=== PATIENT | female | born 1940 ===

== ENCOUNTER 2021-05-16 09:39 | Inpatient (IN) ==
[2021-05-16] MEDS ORDERED: ZOSYN VIAL 3.375 GRAMS 3.375 G in NS 100 ML IV + SPIKE MINIBAG* 100 ML IV SCH (10:00)
[2021-05-16 12:15] VITALS: BMI 25.4
[2021-05-16] MEDS ORDERED: PHARMACY CONSULT LTC MEDICATIONS XX SCH (13:00)
[2021-05-16 19:41] LABS: CRYPTOSPORIDIUM PARVUM ANTIGEN NEGATIVE (NEGATIVE); GIARDIA LAMBLIA ANTIGEN NEGATIVE (NEGATIVE)
[2021-05-16] MEDS ORDERED: NS 100 ML IV 100 ML ONE (21:02)
[2021-05-16] MEDS: NS IV SCH (21:06)
[2021-05-16] MEDS: ZOSYN IV SCH (21:06)
[2021-05-17] MEDS: NS IV SCH ×3 (05:21→23:00)
[2021-05-17] MEDS: ZOSYN IV SCH ×3 (05:21→23:00)
[2021-05-17] MEDS ORDERED: NS 100 ML IV 100 ML ONE (06:10)
[2021-05-17 06:20] LABS: BASOPHILS % (AUTO) 0.4 % (0.2-1.0); EOSINOPHILS # (AUTO) 0.2 x10^3/uL (0.0-0.2); EOSINOPHILS % (AUTO) 3.3 % (0.9-2.9); HEMATOCRIT 31.1 % (36.0-47.0); HEMOGLOBIN 10.6 g/dL (12.0-16.0); LYMPHOCYTES % (AUTO) 39.1 % (21.0-51.0); MEAN CORPUSCULAR HGB CONC 34.1 g/dL (33.0-35.0); MEAN CORPUSCULAR VOLUME 82.1 fL (80.0-100.0); MEAN PLATELET VOLUME 7.7 fL (7.4-11.0); MONOCYTES # (AUTO) 0.5 x10^3/uL (0.3-0.8); MONOCYTES % (AUTO) 8.8 % (0.0-13.0); NEUTROPHILS # (AUTO) 2.5 x10^3/uL (2.2-4.8); NEUTROPHILS % (AUTO) 48.4 % (42.0-75.0); RED BLOOD COUNT 3.79 X10^6/uL (3.5-5.4); RED CELL DISTRIBUTION WIDTH 14.4 % (11.6-16.5); WHITE BLOOD COUNT 5.2 X10^3/uL (3.6-10.0)
[2021-05-17 06:30] LABS: ALANINE AMINOTRANSFERASE < 6 Units/L (12-78); ALBUMIN 2.3 g/dL (3.4-5.0); ALKALINE PHOSPHATASE 78 Units/L (46-116); ASPARTATE AMINO TRANSFERASE 15 Units/L (15-37); BLOOD UREA NITROGEN 7 mg/dL (7-18); CALCIUM 8.1 mg/dL (8.5-10.1); CARBON DIOXIDE 26.8 mmol/L (21-32); CHLORIDE 110 mmol/L (98-107); COR CA(FOR HYPOALB) 9.5 mg/dL (8.5-10.1); CREATININE 0.49 mg/dL (0.55-1.02); SODIUM 144 mmol/L (136-145); TOTAL PROTEIN 5.5 g/dL (6.4-8.2); eGFR NON BLACK RACES > 60 (>60)
[2021-05-17] MEDS ORDERED: POTASSIUM CHL 60 MEQ/NS 0.45% 500 ML IV PRN (06:35)
[2021-05-17] MEDS ORDERED: POTASSIUM CHLORIDE LIQ 20 MEQ UDC PO PRN (06:35)
[2021-05-17] MEDS ORDERED: MICRO K EXTEN CAP 10 MEQ PO PRN (06:35)
[2021-05-17] MEDS ORDERED: KLOR-CON PO PRN (06:35)
[2021-05-17] MEDS ORDERED: K-RIDER 10 MEQ/NS 100 ML 10 MEQ/100 ML BAG IV PRN (06:35)
[2021-05-17] MEDS ORDERED: POTASSIUM CHL 40 MEQ/NS 0.45% 500 ML IV PRN (06:35)
[2021-05-17] MEDS ORDERED: LEXAPRO ONE (08:11)
[2021-05-17] MEDS: LEXAPRO PO SCH (08:29)
[2021-05-17] MEDS: K-DUR TAB 20 MEQ PO PRN (08:30)
[2021-05-17] MEDS: VSL#3 PO SCH (10:13)
[2021-05-17] MEDS: LOVENOX INJ 40 MG SYR SC SCH (10:13)
[2021-05-17] MEDS: MAGNESIUM SULFATE 1 GRAM/100 mL PREMIX 1 G/100 ML BAG IV PRN ×2 (20:55→22:16)
[2021-05-18] MEDS ORDERED: NS 100 ML IV 100 ML ONE (00:11)
[2021-05-18] MEDS: NS IV SCH ×3 (05:26→21:39)
[2021-05-18] MEDS: ZOSYN IV SCH ×3 (05:26→21:39)
[2021-05-18 05:57] LABS: BASOPHILS % (AUTO) 0.3 % (0.2-1.0); EOSINOPHILS # (AUTO) 0.2 x10^3/uL (0.0-0.2); EOSINOPHILS % (AUTO) 4.1 % (0.9-2.9); HEMATOCRIT 30.5 % (36.0-47.0); HEMOGLOBIN 10.3 g/dL (12.0-16.0); LYMPHOCYTES # (AUTO) 2.4 X10^3/uL (1.3-2.9); LYMPHOCYTES % (AUTO) 43.8 % (21.0-51.0); MEAN CORPUSCULAR HEMOGLOBIN 27.9 pg (27.0-34.0); MEAN CORPUSCULAR HGB CONC 33.8 g/dL (33.0-35.0); MEAN CORPUSCULAR VOLUME 82.5 fL (80.0-100.0); MEAN PLATELET VOLUME 7.4 fL (7.4-11.0); MONOCYTES # (AUTO) 0.5 x10^3/uL (0.3-0.8); MONOCYTES % (AUTO) 9.1 % (0.0-13.0); NEUTROPHILS # (AUTO) 2.4 x10^3/uL (2.2-4.8); NEUTROPHILS % (AUTO) 42.7 % (42.0-75.0); RED BLOOD COUNT 3.69 X10^6/uL (3.5-5.4); RED CELL DISTRIBUTION WIDTH 14.2 % (11.6-16.5); WHITE BLOOD COUNT 5.5 X10^3/uL (3.6-10.0)
[2021-05-18 06:11] LABS: ALANINE AMINOTRANSFERASE 7 Units/L (12-78); ALBUMIN 2.2 g/dL (3.4-5.0); ALKALINE PHOSPHATASE 72 Units/L (46-116); ASPARTATE AMINO TRANSFERASE 13 Units/L (15-37); BLOOD UREA NITROGEN 6 mg/dL (7-18); CALCIUM 7.7 mg/dL (8.5-10.1); CARBON DIOXIDE 25.5 mmol/L (21-32); CHLORIDE 109 mmol/L (98-107); COR CA(FOR HYPOALB) 9.1 mg/dL (8.5-10.1); CREATININE 0.56 mg/dL (0.55-1.02); MAGNESIUM 2.2 mg/dL (1.7-2.9); SODIUM 143 mmol/L (136-145); TOTAL PROTEIN 5.3 g/dL (6.4-8.2); eGFR NON BLACK RACES > 60 (>60)
[2021-05-18] MEDS ORDERED: LEXAPRO ONE (07:55)
[2021-05-18] MEDS: LOVENOX INJ 40 MG SYR SC SCH (09:41)
[2021-05-18] MEDS: LEXAPRO PO SCH (09:59)
[2021-05-18] MEDS: VSL#3 PO SCH (10:00)
[2021-05-18] MEDS: K-DUR TAB 20 MEQ PO PRN (10:01)
[2021-05-19] MEDS ORDERED: NS 100 ML IV 100 ML ONE (04:37)
[2021-05-19] MEDS: NS IV SCH ×3 (05:26→21:14)
[2021-05-19] MEDS: ZOSYN IV SCH ×3 (05:26→21:14)
[2021-05-19 06:24] LABS: BASOPHILS % (AUTO) 0.3 % (0.2-1.0); EOSINOPHILS # (AUTO) 0.2 x10^3/uL (0.0-0.2); EOSINOPHILS % (AUTO) 3.5 % (0.9-2.9); HEMATOCRIT 34.1 % (36.0-47.0); HEMOGLOBIN 11.5 g/dL (12.0-16.0); LYMPHOCYTES # (AUTO) 2.4 X10^3/uL (1.3-2.9); LYMPHOCYTES % (AUTO) 42.3 % (21.0-51.0); MEAN CORPUSCULAR HGB CONC 33.8 g/dL (33.0-35.0); MEAN CORPUSCULAR VOLUME 82.9 fL (80.0-100.0); MEAN PLATELET VOLUME 7.8 fL (7.4-11.0); MONOCYTES # (AUTO) 0.5 x10^3/uL (0.3-0.8); MONOCYTES % (AUTO) 8.3 % (0.0-13.0); NEUTROPHILS # (AUTO) 2.6 x10^3/uL (2.2-4.8); NEUTROPHILS % (AUTO) 45.6 % (42.0-75.0); RED BLOOD COUNT 4.11 X10^6/uL (3.5-5.4); RED CELL DISTRIBUTION WIDTH 14.8 % (11.6-16.5); WHITE BLOOD COUNT 5.6 X10^3/uL (3.6-10.0)
[2021-05-19 06:41] LABS: ALANINE AMINOTRANSFERASE 9 Units/L (12-78); ALBUMIN 2.4 g/dL (3.4-5.0); ALKALINE PHOSPHATASE 82 Units/L (46-116); ASPARTATE AMINO TRANSFERASE 20 Units/L (15-37); BLOOD UREA NITROGEN 5 mg/dL (7-18); CALCIUM 8.1 mg/dL (8.5-10.1); CARBON DIOXIDE 25.3 mmol/L (21-32); CHLORIDE 110 mmol/L (98-107); COR CA(FOR HYPOALB) 9.4 mg/dL (8.5-10.1); CREATININE 0.47 mg/dL (0.55-1.02); SODIUM 143 mmol/L (136-145); TOTAL PROTEIN 5.7 g/dL (6.4-8.2); eGFR NON BLACK RACES > 60 (>60)
[2021-05-19] MEDS ORDERED: LEXAPRO ONE (07:16)
[2021-05-19] MEDS: LEXAPRO PO SCH (08:24)
[2021-05-19] MEDS: LOVENOX INJ 40 MG SYR SC SCH (08:24)
[2021-05-19] MEDS: VSL#3 PO SCH (08:25)
[2021-05-19] MEDS: ZADITOR EYE DROPS EACHEYE SCH ×2 (10:09→21:00)
[2021-05-19] MEDS: K-DUR TAB 20 MEQ PO PRN (14:50)
[2021-05-20 00:07] LABS: MAGNESIUM 1.9 mg/dL (1.7-2.9)
[2021-05-20] MEDS: MAGNESIUM SULFATE 1 GRAM/100 mL PREMIX 1 G/100 ML BAG IV PRN ×2 (00:25→01:23)
[2021-05-20] MEDS: K-DUR TAB 20 MEQ PO PRN (00:26)
[2021-05-20] MEDS: ZOSYN IV SCH ×3 (05:04→21:05)
[2021-05-20] MEDS: NS IV SCH ×3 (05:04→21:05)
[2021-05-20 06:18] LABS: BASOPHILS # (AUTO) 0.1 X10^3/uL (0.0-0.1); EOSINOPHILS # (AUTO) 0.2 x10^3/uL (0.0-0.2); EOSINOPHILS % (AUTO) 3.2 % (0.9-2.9); HEMATOCRIT 32.7 % (36.0-47.0); HEMOGLOBIN 10.8 g/dL (12.0-16.0); LYMPHOCYTES # (AUTO) 2.4 X10^3/uL (1.3-2.9); LYMPHOCYTES % (AUTO) 43.9 % (21.0-51.0); MEAN CORPUSCULAR HEMOGLOBIN 27.7 pg (27.0-34.0); MEAN CORPUSCULAR HGB CONC 33.1 g/dL (33.0-35.0); MEAN CORPUSCULAR VOLUME 83.6 fL (80.0-100.0); MEAN PLATELET VOLUME 7.6 fL (7.4-11.0); MONOCYTES # (AUTO) 0.5 x10^3/uL (0.3-0.8); MONOCYTES % (AUTO) 9.2 % (0.0-13.0); NEUTROPHILS # (AUTO) 2.3 x10^3/uL (2.2-4.8); NEUTROPHILS % (AUTO) 42.7 % (42.0-75.0); RED BLOOD COUNT 3.91 X10^6/uL (3.5-5.4); RED CELL DISTRIBUTION WIDTH 14.5 % (11.6-16.5); WHITE BLOOD COUNT 5.4 X10^3/uL (3.6-10.0)
[2021-05-20 06:33] LABS: ALANINE AMINOTRANSFERASE 10 Units/L (12-78); ALBUMIN 2.3 g/dL (3.4-5.0); ALKALINE PHOSPHATASE 76 Units/L (46-116); ASPARTATE AMINO TRANSFERASE 13 Units/L (15-37); BLOOD UREA NITROGEN 6 mg/dL (7-18); CARBON DIOXIDE 29.4 mmol/L (21-32); CHLORIDE 110 mmol/L (98-107); COR CA(FOR HYPOALB) 9.4 mg/dL (8.5-10.1); CREATININE 0.53 mg/dL (0.55-1.02); MAGNESIUM 2.4 mg/dL (1.7-2.9); SODIUM 144 mmol/L (136-145); TOTAL PROTEIN 5.6 g/dL (6.4-8.2); eGFR NON BLACK RACES > 60 (>60)
[2021-05-20] MEDS ORDERED: LEXAPRO ONE (09:02)
[2021-05-20] MEDS: ZADITOR EYE DROPS EACHEYE SCH ×2 (09:44→21:05)
[2021-05-20] MEDS: LEXAPRO PO SCH (09:44)
[2021-05-20] MEDS: VSL#3 PO SCH (09:44)
[2021-05-20] MEDS: LOVENOX INJ 40 MG SYR SC SCH (09:45)
[2021-05-21] MEDS: NS IV SCH (05:06)
[2021-05-21] MEDS: ZOSYN IV SCH (05:06)
[2021-05-21 06:25] LABS: BASOPHILS % (AUTO) 0.4 % (0.2-1.0); EOSINOPHILS # (AUTO) 0.2 x10^3/uL (0.0-0.2); EOSINOPHILS % (AUTO) 2.5 % (0.9-2.9); HEMATOCRIT 30.8 % (36.0-47.0); HEMOGLOBIN 10.4 g/dL (12.0-16.0); LYMPHOCYTES # (AUTO) 2.5 X10^3/uL (1.3-2.9); LYMPHOCYTES % (AUTO) 29.4 % (21.0-51.0); MEAN CORPUSCULAR HEMOGLOBIN 28.1 pg (27.0-34.0); MEAN CORPUSCULAR HGB CONC 33.9 g/dL (33.0-35.0); MEAN CORPUSCULAR VOLUME 82.9 fL (80.0-100.0); MEAN PLATELET VOLUME 7.2 fL (7.4-11.0); MONOCYTES # (AUTO) 0.8 x10^3/uL (0.3-0.8); MONOCYTES % (AUTO) 9.3 % (0.0-13.0); NEUTROPHILS % (AUTO) 58.4 % (42.0-75.0); RED BLOOD COUNT 3.72 X10^6/uL (3.5-5.4); WHITE BLOOD COUNT 8.5 X10^3/uL (3.6-10.0)
[2021-05-21 06:41] LABS: ALANINE AMINOTRANSFERASE 9 Units/L (12-78); ALBUMIN 2.3 g/dL (3.4-5.0); ALKALINE PHOSPHATASE 74 Units/L (46-116); ASPARTATE AMINO TRANSFERASE 18 Units/L (15-37); BLOOD UREA NITROGEN 6 mg/dL (7-18); CALCIUM 7.6 mg/dL (8.5-10.1); CARBON DIOXIDE 25.2 mmol/L (21-32); CHLORIDE 107 mmol/L (98-107); CREATININE 0.58 mg/dL (0.55-1.02); SODIUM 141 mmol/L (136-145); TOTAL PROTEIN 5.5 g/dL (6.4-8.2); eGFR NON BLACK RACES > 60 (>60)
[2021-05-21] MEDS ORDERED: LEXAPRO ONE (09:02)
[2021-05-21] MEDS: VSL#3 PO SCH (09:20)
[2021-05-21] MEDS: LOVENOX INJ 40 MG SYR SC SCH (09:21)
[2021-05-21] MEDS: ZADITOR EYE DROPS EACHEYE SCH (09:21)
[2021-05-21] MEDS: LEXAPRO PO SCH (09:21)
[2021-05-21] MEDS: K-DUR TAB 20 MEQ PO PRN (09:23)
[2021-05-21 12:07] VITALS: BP 96/51
[2021-05-21] MEDS ORDERED: ZOSYN VIAL 3.375 GRAMS 3.375 G in NS 100 ML IV 100 ML IV SCH (14:00)
== END 2021-05-21 14:30 | DRG 689 ==
LOC: MED/SURG → OBSVTOIN 10:11
PROVIDERS: ADMIT Obstetrics & Gynecology Obstetrics; ATTEND Obstetrics & Gynecology Obstetrics
DX: R60.0 Localized edema; B96.5 Pseudomonas (aeruginosa) (mallei) (pseudomallei) as the cause of diseases classified elsewhere; L89.154 Pressure ulcer of sacral region, stage 4; N39.0 Urinary tract infection, site not specified; B96.4 Proteus (mirabilis) (morganii) as the cause of diseases classified elsewhere; R26.89 Other abnormalities of gait and mobility; B96.29 Other Escherichia coli [E. coli] as the cause of diseases classified elsewhere; I10 Essential (primary) hypertension

== ENCOUNTER 2021-08-02 08:49 | Inpatient (IN) ==
--- NOTE | 2021-08-02 08:52 | DR.GENAD ---
HPI Time Seen Time Seen by Provider: 08/02/21 08:51 HPI Comment HPI Comment: PATIENT IS 80YR OLD FEMALE FROM [facility] IS IN ER WITH FEVER, LOW BP AND BLOOD CULTURE REPORTING POSITIVE. STARTED RUNNING FEVER OVER THE WEEK END. SPIKE TEMP LAST NIGHT. PATIENT IS CONFUSE. HE ALSO HAVE LARGE SACRAL DECUBITUS U LCER. NO DYSURIA OR DIARRHEA. BP 88/52 IN ER. PATIENT IS IS WEAK. Complaint/Symptoms Chief Complaint Doctors Comments: FEVER, NAUSEA AND VOMITING AND LOW BP. BLOOD CULT REPORTED POSITIVE. COVID-19 Coronavirus risk:travel/contact w/high risk person: No Has patient experienced Coronavirus symptoms: No Nurses notes reviewed Nurses Notes Review: Yes Source History Provided: Patient and Group Home Mode of Arrival Mode of Arrival: Stretcher Timing Came on: Suddenly Duration Duration: Constant Duration: Days Severity Severity: Moderate Modifying Factors Worsens:: PRESSURE ON DECUBITUS ULCER. Improves:: PRESSURE OFF DECUBITUS ULCER. Associated Signs and Symptoms Associated Signs and Symptoms: WEAKNESS. Other History Other History: ANEMIA, CAD, GERD, DYSLIPIDEMIA. PMH PMH Past Surgical History: Yes Surgical History: Ortho Surgery, Tonsillectomy and Other ROS Review of Systems Constitutional: See HPI, Fever, Weakness and Fatigue Eyes: No Symptoms Reported and See HPI ENTM: See HPI and Nose Congestion; negative Nose Discharge Respiratoy: See HPI, Moist Cough and Short of Breath; negative Wheezing Cardiovascular: No Symptoms Reported and See HPI; negative Chest Pain Gastrointestinal/Abdominal: No Symptoms Reported and See HPI; negative Abdominal Pain, Diarrhea and Vomiting Genitourinary: No Symptoms Reported and See HPI; negative Dysuria Neurological: See HPI and Weakness; negative Headache Musculoskeletal: See HPI and Back Pain (SACRAL DECUBITUS ULSER.); negative Muscle Pain Integumentary: No Symptoms Reported, See HPI and Rash (DECUBITIS ULCER SACRUM.); negative Juandice Hematologic/Lymphatic: No Symptoms Reported and See HPI; negative Easy Bruising Endocrine: No Symptoms Reported and See HPI; negative Increased Thirst and Increased Urine Psychiatric: No Symptoms Reported and See HPI All Other Systems: Reviewed and Negative PE Vital Signs Vitals: Temperature 98.0 F Pulse Rate 67 Respiratory Rate 17 Blood Pressure [Right Arm] 96/51 Blood Pressure 90/54 O2 Sat by Pulse Oximetry 96 General Limitations: No Limitations General Appearance: Alert and In No Apparent Distress Head Head Exam: Normal Inspection and Atraumatic Eyes Eye exam: Normal Appearance and PERRL; negative Scleral Icterus and Conjunctival Injection ENT ENT Exam: Normal Exam, Normal Oropharynx, Normal External Ear Exam and TM's Normal Bilaterally External Ear Exam: Normal External Inspection; negative Mastoid Tenderness TM/Canal Exam: Bilateral: Normal Nose Exam: Normal Nose Exam Mouth Exam: Normal Inspection; negative Lip Swelling and Tongue Swelling Throat Exam: Normal Inspection; negative Tonsillar Erythema, Tonsillomegaly and Tonsillar Exudate Neck Neck Exam: Normal Inspection and Trachea Midline; negative Tenderness Chest Chest Inspection: Normal Inspection and Symmetric Chest Wall Rise; negative Tenderness Respiratory Respiratory Exam: Normal Lung Sounds Bilat; negative Accessory Muscle Use, Chest Wall Tenderness and Respiratory Distress Respiratory Exam: Bilateral: Rhonchi and Lower: Rhonchi Cardiovascular Cardiovascular Exam: Regular Rate, Normal Rhythm, Normal Heart Sounds and Other (LOW BP.); negative Systolic Murmur and Diastolic Murmur Abdominal Exam Abdominal Exam: Normal Inspection, Normal Bowel Sounds and Soft; negative Tenderness Extremities Extremities Exam: Normal Inspection and Normal Capillary Refill Back Back Exam: Normal Inspection; negative (R) CVA Tenderness and (L) CVA Tenderness Neurologic Neurological Exam: Alert; negative Oriented X3 (ORIENTED TIMES 2.) Psychiatric Psychiatric Exam: Flat Affect Skin Skin Exam: Dry MDM Additional Information Additional Information Obtained From: Old Records Differential Diagnosis Differential Diagnosis: SEPSIS, ITI, PNEUMONIA, GENERALIZED WEAKNESS. COURSE Treatment Treatment: SEE ORDERS NOTED WHILE PATIENT WAS IN ER. LABS, EKG AND XRAY DISCUSSED WITH PATIENT. Consultation Consultation Comments: DISCUSSED PATIENT WITH DR. GONZALES. HE WILL ADMIT PATIENT. Education/Counseling Education/Counseling: Patient Educated On: Diagnosis and Needs for Follow Up ROR Labs Reviewed Laboratory Results Reviewed?: Yes Result Diagrams: 08/09/21 04:10 08/09/21 04:10 Laboratory: 08/02/21 09:37 Blood Blood Culture - Final Escherichia Coli Escherichia Coli#2 08/02/21 09:20 Blood Blood Culture - Final Escherichia Coli 08/02/21 10:10 Urine,Catheterized Urine Culture - Final Escherichia Coli Proteus Mirabilis Pseudomonas Aeruginosa 08/02/21 10:07 Sacral Wound Gram Stain - Final 08/02/21 10:07 Sacral Wound Culture - Final Pseudomonas Aeruginosa Proteus Mirabilis WBC 30.1 X10^3/uL (3.6-10.0) H* 08/02/21 09:20 RBC 3.72 X10^6/uL (3.5-5.4) 08/02/21 09:20 Hgb 9.9 g/dL (12.0-16.0) L 08/02/21 09:20 Hct 30.3 % (36.0-47.0) L 08/02/21 09:20 MCV 81.5 fL (80.0-100.0) 08/02/21 09:20 MCH 26.6 pg (27.0-34.0) L 08/02/21 09:20 MCHC 32.7 g/dL (33.0-35.0) L 08/02/21 09:20 RDW 15.7 % (11.6-16.5) 08/02/21 09:20 Plt Count 185 X10^3/uL (150.0-450.0) 08/02/21 09:20 Plt Count Comment Adequate (ADEQUATE) 08/02/21 09:20 MPV 8.0 fL (7.4-11.0) 08/02/21 09:20 Neut % (Auto) 92.0 % (42.0-75.0) H 08/02/21 09:20 Lymph % (Auto) 5.0 % (21.0-51.0) L 08/02/21 09:20 [place] % (Auto) 2.5 % (0.0-13.0) 08/02/21 09:20 Eos % (Auto) 0.3 % (0.9-2.9) L 08/02/21 09:20 Baso % (Auto) 0.2 % (0.2-1.0) 08/02/21 09:20 Neut # (Auto) 27.7 x10^3/uL (2.2-4.8) H 08/02/21 09:20 Lymph # (Auto) 1.5 X10^3/uL (1.3-2.9) 08/02/21 09:20 [place] # (Auto) 0.7 x10^3/uL (0.3-0.8) 08/02/21 09:20 Eos # (Auto) 0.1 x10^3/uL (0.0-0.2) 08/02/21 09:20 Baso # (Auto) 0.0 X10^3/uL (0.0-0.1) 08/02/21 09:20 Absolute Nucleated RBC 0.0 /100WBC 08/02/21 09:20 Total Counted 100 08/02/21 09:20 Neutrophils % (Manual) 88 % (39-76) H 08/02/21 09:20 Band Neutrophils % 2 % (0-10) 08/02/21 09:20 Lymphocytes % (Manual) 9 % (13-43) L 08/02/21 09:20 Monocytes % (Manual) 1 % (4-9) L 08/02/21 09:20 Plt Morphology Comment Normal (NORMAL) 08/02/21 09:20 RBC Morphology Normal (NORMAL) 08/02/21 09:20 Sodium 138 mmol/L (136-145) 08/02/21 09:20 Corrected Sodium 138 mmol/L (136-145) 08/02/21 09:20 Potassium 3.8 mmol/L (3.5-5.1) 08/02/21 09:20 Chloride 102 mmol/L (98-107) 08/02/21 09:20 Carbon Dioxide 28.6 mmol/L (21-32) 08/02/21 09:20 BUN 35 mg/dL (7-18) H 08/02/21 09:20 Creatinine 1.87 mg/dL (0.55-1.02) H 08/02/21 09:20 Est GFR (MDRD) Af Amer 33 (>60) L 08/02/21 09:20 Est GFR (MDRD) Non-Af 28 (>60) L 08/02/21 09:20 Glucose 117 mg/dL (65-99) H 08/02/21 09:20 Lactic Acid 1.7 mmol/L (0.4-2.0) 08/02/21 09:20 Calcium 8.6 mg/dL (8.5-10.1) 08/02/21 09:20 Corrected Calcium 10.3 mg/dL (8.5-10.1) H 08/02/21 09:20 Total Bilirubin 0.40 mg/dL (0.2-1.0) 08/02/21 09:20 AST 15 Units/L (15-37) 08/02/21 09:20 ALT 7 Units/L (12-78) L 08/02/21 09:20 Alkaline Phosphatase 179 Units/L (46-116) H 08/02/21 09:20 Creatine Kinase 35 Units/L (26-192) 08/02/21 09:20 CK-MB (CK-2) 0.9 ng/mL (0-4.0) 08/02/21 09:20 CK/CKMB % Calc 2.6 % (<4) 08/02/21 09:20 Troponin I High Sens 11.0 ng/L (4.0-60.0) 08/02/21 09:20 B-Natriuretic Peptide 173 pg/mL (0-79) H 08/02/21 09:20 Total Protein 5.5 g/dL (6.4-8.2) L 08/02/21 09:20 Albumin 1.9 g/dL (3.4-5.0) L 08/02/21 09:20 Globulin 3.6 g/dL (2.5-4.5) 08/02/21 09:20 Albumin/Globulin Ratio 0.5 Ratio (1.1-2.1) L 08/02/21 09:20 Specimen Type Catherized urine 08/02/21 10:10 Urine Color Yellow (YELLOW) 08/02/21 10:10 Urine Appearance Cloudy (CLEAR) 08/02/21 10:10 Urine pH 7.0 (5.0 - 8.0) 08/02/21 10:10 Ur Specific [place] 1.010 (1.000-1.030) 08/02/21 10:10 Urine Protein 3+ (NEGATIVE) 08/02/21 10:10 Urine Glucose (UA) Negative (NEGATIVE) 08/02/21 10:10 Urine Ketones 1+ (NEGATIVE) 08/02/21 10:10 Urine Blood 5+ (NEGATIVE) 08/02/21 10:10 Urine Nitrite Negative (NEGATIVE) 08/02/21 10:10 Urine Bilirubin Negative (NEGATIVE) 08/02/21 10:10 Urine Urobilinogen 2+ (NORMAL) 08/02/21 10:10 Ur Leukocyte Esterase 3+ (NEGATIVE) 08/02/21 10:10 Urine RBC 5-10 /HPF (0-3) A 08/02/21 10:10 Urine WBC 10-20 /HPF (0-5) A 08/02/21 10:10 Ur Squamous Epith Cells Rare /HPF (NEGATIVE) 08/02/21 10:10 Amorphous Sediment 2+ /HPF (NEGATIVE) 08/02/21 10:10 Urine Bacteria 3+ /HPF (NEGATIVE) 08/02/21 10:10 Ur Culture Indicated? Yes/culture set up 08/02/21 10:10 SARS-CoV-2 (PCR) Negative (NEGATIVE) 08/02/21 09:47 XRAY XRAY Interpreted by: Radiologist (REPORT NOTED.) and Self EKG Rate: 60 Elwin: Normal Rhythm: NSR Block: None Hypertrophy: None ST: Old, Inf, Ant, Infarct and Nonsp Opioid Opioid Risk Tool Age (Erasto box if 16-45): No History of Preadolescent Sexual Abuse: No Total: 0 Total Score Risk Category: Low Risk Copyright: [facility] predicting aberrant behaviors Diagnosis Discharge Problem: Bacteremia Sepsis Qualifiers: Sepsis type: sepsis due to unspecified organism Sepsis acute organ dysfunction status: unspecified Qualified Code(s): A41.9 - Sepsis, unspecified organism Hypotension Qualifiers: Hypotension type: unspecified hypotension type Qualified Code(s): I95.9 - Hypotension, unspecified Decubital ulcer Qualifiers: Pressure injury location: sacral region Pressure injury stage: stage 2 Qualified Code(s): L89.152 - Pressure ulcer of sacral region, stage 2 Instructions Forms: Precautions for COVID19 [facility] Patient Portal Social Distancing
[2021-08-02] MEDS ORDERED: NS 1,000 ML IV 1,000 ML ONE (09:46)
[2021-08-02 09:53] LABS: BASOPHILS % (AUTO) 0.2 % (0.2-1.0); EOSINOPHILS # (AUTO) 0.1 x10^3/uL (0.0-0.2); EOSINOPHILS % (AUTO) 0.3 % (0.9-2.9); HEMATOCRIT 30.3 % (36.0-47.0); HEMOGLOBIN 9.9 g/dL (12.0-16.0); LYMPHOCYTES # (AUTO) 1.5 X10^3/uL (1.3-2.9); MEAN CORPUSCULAR HEMOGLOBIN 26.6 pg (27.0-34.0); MEAN CORPUSCULAR HGB CONC 32.7 g/dL (33.0-35.0); MEAN CORPUSCULAR VOLUME 81.5 fL (80.0-100.0); MONOCYTES # (AUTO) 0.7 x10^3/uL (0.3-0.8); MONOCYTES % (AUTO) 2.5 % (0.0-13.0); NEUTROPHILS # (AUTO) 27.7 x10^3/uL (2.2-4.8); RED BLOOD COUNT 3.72 X10^6/uL (3.5-5.4); RED CELL DISTRIBUTION WIDTH 15.7 % (11.6-16.5)
[2021-08-02 09:55] LABS: WHITE BLOOD COUNT 30.1 X10^3/uL (3.6-10.0)
[2021-08-02 10:04] LABS: LACTIC ACID 1.7 mmol/L (0.4-2.0)
[2021-08-02] MEDS: NS 1,000 ML IV 1,000 ML IV SCH ×3 (10:08→17:57)
[2021-08-02 10:17] LABS: CKMB % 2.6 % (<4); CREATINE KINASE MB 0.9 ng/mL (0-4.0)
[2021-08-02 10:18] LABS: BILIRUBIN,URINE NEGATIVE (NEGATIVE); BLOOD/HEMOGLOBIN,URINE 5+ (NEGATIVE); GLUCOSE, URINE NEGATIVE (NEGATIVE); KETONES,URINE 1+ (NEGATIVE); LEUKOCYTE ESTERASE ,URINE 3+ (NEGATIVE); NITRITES,URINE NEGATIVE (NEGATIVE); PROTEIN,URINE 3+ (NEGATIVE); UROBILINOGEN,URINE 2+ (NORMAL)
[2021-08-02 10:19] LABS: APPEARANCE,URINE CLOUDY (CLEAR); COLOR,URINE YELLOW (YELLOW)
[2021-08-02 10:19] LABS: ALBUMIN 1.9 g/dL (3.4-5.0); BAND NEUTROPHILS % 2 % (0-10); CALCIUM 8.6 mg/dL (8.5-10.1); CARBON DIOXIDE 28.6 mmol/L (21-32); COR CA(FOR HYPOALB) 10.3 mg/dL (8.5-10.1); CREATININE 1.87 mg/dL (0.55-1.02); TOTAL PROTEIN 5.5 g/dL (6.4-8.2)
[2021-08-02 10:20] LABS: PLATELET MORPHOLOGY COMMENT NORMAL (NORMAL)
--- NOTE | 2021-08-02 10:25 | RAD ---
HISTORYFeverSTUDYChest AP portableCOMPARISONNoneFINDINGSHeart size is normal. Autumn are normal. Mild hyperinflation is present. Lung daily are free of acute infiltrates. Interstitial lung changes are present. They are of uncertain duration. They could be chronic however if acute they could indicate pneumonitis or atypical pneumonia. Clinical and historical correlation recommended. No areas of consolidation identified. No pneumothoraces or pleural effusions identified. Bony thorax is unremarkable with the exception of osteopenia.IMPRESSIONLungs mildly hyperinflated but free of acute alveolar infiltrates or areas of consolidationInterstitial lung changes which could be chronic and fibrotic or acute and due to pneumonitis or atypical pneumonia. This distinction is difficult in the absence of previous films with which to compare.Electronically signed by: CORDELL TODD (August 02, 2021 10:25:08)
[2021-08-02 10:53] LABS: BACTERIA,URINE 3+ /HPF (NEGATIVE); SQUAMOUS EPITHELIAL CELL,UR RARE /HPF (NEGATIVE)
[2021-08-02] MEDS ORDERED: ZOSYN VIAL 3.375 GRAMS 3.375 G in NS 100 ML IV 100 ML IV ONE (11:14)
[2021-08-02] MEDS ORDERED: NS 100 ML IV 100 ML ONE (11:19)
[2021-08-02] MEDS ORDERED: ZOSYN VIAL 3.375 GRAMS IV ONE (11:19)
[2021-08-02] MEDS ORDERED: PHARMACY CONSULT - VANCOMYCIN XX SCH (12:00)
[2021-08-02] MEDS: VANCOMYCIN IV *PREMIX 1 G/200 ML BAG 1 G/200 ML PIGGYBACK IV SCH (13:23)
[2021-08-02] MEDS ORDERED: ZOSYN VIAL 3.375 GRAMS 3.375 G in NS 100 ML IV 100 ML IV SCH (14:10)
[2021-08-02] MEDS ORDERED: SOLU-Cortef INJ IVP SCH (14:10)
[2021-08-02] MEDS ORDERED: NS 1,000 ML IV 1,000 ML IV SCH (14:10)
[2021-08-02] MEDS ORDERED: LOVENOX INJ 30 MG SYR SC SCH (15:00)
[2021-08-02] MEDS ORDERED: LOVENOX INJ 40 MG SYR SC SCH (15:00)
[2021-08-02] MEDS: SOLU-Cortef INJ IVP SCH ×2 (16:26→21:33)
[2021-08-02] MEDS: THIAMINE HCL INJ IVP SCH (21:20)
[2021-08-02] MEDS: ZOSYN VIAL 3.375 GRAMS 3.375 G in NS 100 ML IV 100 ML IV SCH (21:33)
[2021-08-03 04:54] LABS: BASOPHILS % (AUTO) 0.1 % (0.2-1.0); EOSINOPHILS # (AUTO) 0.1 x10^3/uL (0.0-0.2); EOSINOPHILS % (AUTO) 0.4 % (0.9-2.9); HEMATOCRIT 27.8 % (36.0-47.0); HEMOGLOBIN 9.3 g/dL (12.0-16.0); LYMPHOCYTES # (AUTO) 0.7 X10^3/uL (1.3-2.9); LYMPHOCYTES % (AUTO) 4.4 % (21.0-51.0); MEAN CORPUSCULAR HGB CONC 33.3 g/dL (33.0-35.0); MEAN CORPUSCULAR VOLUME 81.1 fL (80.0-100.0); MEAN PLATELET VOLUME 8.1 fL (7.4-11.0); MONOCYTES # (AUTO) 0.3 x10^3/uL (0.3-0.8); NEUTROPHILS # (AUTO) 14.4 x10^3/uL (2.2-4.8); NEUTROPHILS % (AUTO) 93.1 % (42.0-75.0); RED BLOOD COUNT 3.43 X10^6/uL (3.5-5.4); WHITE BLOOD COUNT 15.4 X10^3/uL (3.6-10.0)
[2021-08-03 05:05] LABS: ALANINE AMINOTRANSFERASE < 6 Units/L (12-78); ALBUMIN 1.6 g/dL (3.4-5.0); ALKALINE PHOSPHATASE 138 Units/L (46-116); ASPARTATE AMINO TRANSFERASE 10 Units/L (15-37); BLOOD UREA NITROGEN 26 mg/dL (7-18); CALCIUM 7.5 mg/dL (8.5-10.1); CARBON DIOXIDE 22.5 mmol/L (21-32); CHLORIDE 109 mmol/L (98-107); COR CA(FOR HYPOALB) 9.4 mg/dL (8.5-10.1); COR NA(FOR HYPERGLY) 143 mmol/L (136-145); CREATININE 1.16 mg/dL (0.55-1.02); MAGNESIUM 1.5 mg/dL (1.7-2.9); SODIUM 142 mmol/L (136-145); TOTAL PROTEIN 4.7 g/dL (6.4-8.2); eGFR NON BLACK RACES 48 (>60)
[2021-08-03] MEDS ORDERED: POTASSIUM CHL 40 MEQ/NS 0.45% 500 ML IV PRN (05:21)
[2021-08-03] MEDS ORDERED: POTASSIUM CHL 60 MEQ/NS 0.45% 500 ML IV PRN (05:21)
[2021-08-03] MEDS ORDERED: POTASSIUM CHLORIDE LIQ 20 MEQ UDC PO PRN (05:21)
[2021-08-03] MEDS ORDERED: MICRO K EXTEN CAP 10 MEQ PO PRN (05:21)
[2021-08-03] MEDS: MAGNESIUM SULFATE 1 GRAM/100 mL PREMIX 1 G/100 ML BAG IV PRN ×2 (05:55→07:21)
[2021-08-03] MEDS: NS 1,000 ML IV 1,000 ML IV SCH ×4 (05:56→23:45)
[2021-08-03] MEDS: ZOSYN VIAL 3.375 GRAMS 3.375 G in NS 100 ML IV 100 ML IV SCH ×3 (05:56→21:38)
[2021-08-03 06:14] LABS: BAND NEUTROPHILS % 1 % (0-10); PLATELET MORPHOLOGY COMMENT NORMAL (NORMAL)
[2021-08-03] MEDS: LOVENOX INJ 40 MG SYR SC SCH (08:10)
[2021-08-03] MEDS: SOLU-Cortef INJ IVP SCH ×4 (08:11→21:38)
[2021-08-03] MEDS: VSL#3 PO SCH (08:11)
[2021-08-03] MEDS: THIAMINE HCL INJ IVP SCH (08:11)
[2021-08-03] MEDS ORDERED: PROCRIT or EPOGEN VIAL 10,000 UNITS SC ONE (08:47)
[2021-08-03] MEDS: VANCOMYCIN IV *PREMIX 1 G/200 ML BAG 1 G/200 ML PIGGYBACK IV SCH (12:01)
[2021-08-04 04:35] LABS: ALANINE AMINOTRANSFERASE < 6 Units/L (12-78); ALBUMIN 1.5 g/dL (3.4-5.0); ALKALINE PHOSPHATASE 116 Units/L (46-116); ASPARTATE AMINO TRANSFERASE 7 Units/L (15-37); BLOOD UREA NITROGEN 21 mg/dL (7-18); CALCIUM 7.4 mg/dL (8.5-10.1); CARBON DIOXIDE 20.3 mmol/L (21-32); CHLORIDE 112 mmol/L (98-107); COR CA(FOR HYPOALB) 9.4 mg/dL (8.5-10.1); COR NA(FOR HYPERGLY) 143 mmol/L (136-145); CREATININE 0.99 mg/dL (0.55-1.02); SODIUM 142 mmol/L (136-145); TOTAL PROTEIN 4.6 g/dL (6.4-8.2); eGFR NON BLACK RACES 57 (>60)
[2021-08-04 04:37] LABS: BASOPHILS % (AUTO) 0.1 % (0.2-1.0); HEMATOCRIT 26.9 % (36.0-47.0); HEMOGLOBIN 8.9 g/dL (12.0-16.0); LYMPHOCYTES # (AUTO) 0.8 X10^3/uL (1.3-2.9); LYMPHOCYTES % (AUTO) 9.1 % (21.0-51.0); MEAN CORPUSCULAR HEMOGLOBIN 27.1 pg (27.0-34.0); MEAN CORPUSCULAR HGB CONC 33.2 g/dL (33.0-35.0); MEAN CORPUSCULAR VOLUME 81.8 fL (80.0-100.0); MEAN PLATELET VOLUME 8.6 fL (7.4-11.0); MONOCYTES # (AUTO) 0.3 x10^3/uL (0.3-0.8); MONOCYTES % (AUTO) 3.4 % (0.0-13.0); NEUTROPHILS # (AUTO) 7.5 x10^3/uL (2.2-4.8); NEUTROPHILS % (AUTO) 87.4 % (42.0-75.0); RED BLOOD COUNT 3.28 X10^6/uL (3.5-5.4); RED CELL DISTRIBUTION WIDTH 15.9 % (11.6-16.5); WHITE BLOOD COUNT 8.5 X10^3/uL (3.6-10.0)
[2021-08-04] MEDS: NS 1,000 ML IV 1,000 ML IV SCH ×5 (05:20→21:29)
[2021-08-04] MEDS: ZOSYN VIAL 3.375 GRAMS 3.375 G in NS 100 ML IV 100 ML IV SCH (05:21)
[2021-08-04] MEDS: KLOR-CON PO PRN (05:33)
[2021-08-04] MEDS: LOVENOX INJ 40 MG SYR SC SCH (08:15)
[2021-08-04] MEDS: VSL#3 PO SCH (08:16)
[2021-08-04] MEDS: SOLU-Cortef INJ IVP SCH ×4 (08:16→20:45)
[2021-08-04] MEDS: K-DUR TAB 20 MEQ PO PRN (09:06)
[2021-08-04] MEDS: MERREM VIAL 500 MG in NS 100 ML IV 100 ML IV SCH ×3 (09:38→21:29)
[2021-08-04] MEDS: VANCOMYCIN IV *PREMIX 1 G/200 ML BAG 1 G/200 ML PIGGYBACK IV SCH (11:23)
[2021-08-05] MEDS: NS 1,000 ML IV 1,000 ML IV SCH ×4 (03:17→18:05)
[2021-08-05 05:28] LABS: BASOPHILS % (AUTO) 0.3 % (0.2-1.0); EOSINOPHILS # (AUTO) 0.1 x10^3/uL (0.0-0.2); EOSINOPHILS % (AUTO) 1.5 % (0.9-2.9); HEMATOCRIT 28.5 % (36.0-47.0); HEMOGLOBIN 9.4 g/dL (12.0-16.0); LYMPHOCYTES # (AUTO) 0.9 X10^3/uL (1.3-2.9); LYMPHOCYTES % (AUTO) 13.2 % (21.0-51.0); MEAN CORPUSCULAR HGB CONC 32.8 g/dL (33.0-35.0); MEAN CORPUSCULAR VOLUME 82.1 fL (80.0-100.0); MEAN PLATELET VOLUME 8.4 fL (7.4-11.0); MONOCYTES # (AUTO) 0.3 x10^3/uL (0.3-0.8); MONOCYTES % (AUTO) 4.7 % (0.0-13.0); NEUTROPHILS # (AUTO) 5.5 x10^3/uL (2.2-4.8); NEUTROPHILS % (AUTO) 80.3 % (42.0-75.0); RED BLOOD COUNT 3.48 X10^6/uL (3.5-5.4); RED CELL DISTRIBUTION WIDTH 16.4 % (11.6-16.5); WHITE BLOOD COUNT 6.8 X10^3/uL (3.6-10.0)
[2021-08-05] MEDS: MERREM VIAL 500 MG in NS 100 ML IV 100 ML IV SCH ×3 (05:34→21:54)
[2021-08-05 05:44] LABS: ALANINE AMINOTRANSFERASE < 6 Units/L (12-78); ALBUMIN 1.6 g/dL (3.4-5.0); ALKALINE PHOSPHATASE 100 Units/L (46-116); ASPARTATE AMINO TRANSFERASE 7 Units/L (15-37); BLOOD UREA NITROGEN 19 mg/dL (7-18); CALCIUM 7.4 mg/dL (8.5-10.1); CARBON DIOXIDE 19.2 mmol/L (21-32); CHLORIDE 114 mmol/L (98-107); COR CA(FOR HYPOALB) 9.3 mg/dL (8.5-10.1); COR NA(FOR HYPERGLY) 144 mmol/L (136-145); CREATININE 0.83 mg/dL (0.55-1.02); SODIUM 143 mmol/L (136-145); TOTAL PROTEIN 4.5 g/dL (6.4-8.2); eGFR NON BLACK RACES > 60 (>60)
[2021-08-05 06:57] LABS: BAND NEUTROPHILS % 3 % (0-10); PLATELET MORPHOLOGY COMMENT NORMAL (NORMAL)
[2021-08-05] MEDS: VSL#3 PO SCH (08:39)
[2021-08-05] MEDS: SOLU-Cortef INJ IVP SCH ×4 (08:39→20:06)
[2021-08-05] MEDS: LOVENOX INJ 40 MG SYR SC SCH (08:39)
[2021-08-05] MEDS: K-DUR TAB 20 MEQ PO PRN (09:00)
[2021-08-05] MEDS ORDERED: PHARMACY COMMENT IV ONE (10:00)
[2021-08-05 10:22] LABS: CREATININE 0.79 mg/dL (0.55-1.02); VANCOMYCIN,TROUGH 14.1 ug/mL (15-20)
[2021-08-05] MEDS: MAGNESIUM SULFATE 1 GRAM/100 mL PREMIX 1 G/100 ML BAG IV PRN ×3 (12:34→14:38)
[2021-08-06] MEDS: MERREM VIAL 500 MG in NS 100 ML IV 100 ML IV SCH ×3 (05:13→22:00)
[2021-08-06] MEDS: NS 1,000 ML IV 1,000 ML IV SCH ×5 (05:13→20:39)
[2021-08-06 05:35] LABS: BASOPHILS % (AUTO) 0.3 % (0.2-1.0); HEMOGLOBIN 9.7 g/dL (12.0-16.0); LYMPHOCYTES # (AUTO) 1.3 X10^3/uL (1.3-2.9); LYMPHOCYTES % (AUTO) 15.5 % (21.0-51.0); MEAN CORPUSCULAR HEMOGLOBIN 27.5 pg (27.0-34.0); MEAN CORPUSCULAR HGB CONC 33.5 g/dL (33.0-35.0); MEAN PLATELET VOLUME 8.5 fL (7.4-11.0); MONOCYTES # (AUTO) 0.4 x10^3/uL (0.3-0.8); MONOCYTES % (AUTO) 4.7 % (0.0-13.0); NEUTROPHILS # (AUTO) 6.6 x10^3/uL (2.2-4.8); NEUTROPHILS % (AUTO) 79.5 % (42.0-75.0); RED BLOOD COUNT 3.53 X10^6/uL (3.5-5.4); RED CELL DISTRIBUTION WIDTH 16.4 % (11.6-16.5); WHITE BLOOD COUNT 8.4 X10^3/uL (3.6-10.0)
[2021-08-06 05:51] LABS: PLATELET MORPHOLOGY COMMENT NORMAL (NORMAL)
[2021-08-06 06:10] LABS: ALANINE AMINOTRANSFERASE 6 Units/L (12-78); ALBUMIN 1.5 g/dL (3.4-5.0); ALKALINE PHOSPHATASE 90 Units/L (46-116); ASPARTATE AMINO TRANSFERASE 13 Units/L (15-37); BLOOD UREA NITROGEN 16 mg/dL (7-18); CALCIUM 7.2 mg/dL (8.5-10.1); CARBON DIOXIDE 18.4 mmol/L (21-32); CHLORIDE 114 mmol/L (98-107); COR CA(FOR HYPOALB) 9.2 mg/dL (8.5-10.1); COR NA(FOR HYPERGLY) 142 mmol/L (136-145); SODIUM 142 mmol/L (136-145); TOTAL PROTEIN 4.3 g/dL (6.4-8.2); eGFR NON BLACK RACES > 60 (>60)
[2021-08-06] MEDS: SOLU-Cortef INJ IVP SCH ×4 (08:19→20:39)
[2021-08-06] MEDS: VSL#3 PO SCH (08:20)
[2021-08-06] MEDS: K-DUR TAB 20 MEQ PO PRN (08:23)
[2021-08-06] MEDS: LOVENOX INJ 40 MG SYR SC SCH (08:44)
[2021-08-06] MEDS: K-DUR TAB 20 MEQ PO SCH ×2 (10:33→20:38)
[2021-08-07] MEDS: NS 1,000 ML IV 1,000 ML IV SCH ×4 (05:06→17:48)
[2021-08-07] MEDS: MERREM VIAL 500 MG in NS 100 ML IV 100 ML IV SCH ×3 (05:07→21:30)
[2021-08-07 06:23] LABS: HEMOGLOBIN 9.4 g/dL (12.0-16.0); MEAN PLATELET VOLUME 8.3 fL (7.4-11.0)
[2021-08-07 06:26] LABS: BASOPHILS % (AUTO) 0.3 % (0.2-1.0); EOSINOPHILS # (AUTO) 0.3 x10^3/uL (0.0-0.2); EOSINOPHILS % (AUTO) 2.7 % (0.9-2.9); HEMATOCRIT 28.4 % (36.0-47.0); LYMPHOCYTES # (AUTO) 1.4 X10^3/uL (1.3-2.9); LYMPHOCYTES % (AUTO) 13.8 % (21.0-51.0); MEAN CORPUSCULAR HEMOGLOBIN 27.2 pg (27.0-34.0); MEAN CORPUSCULAR HGB CONC 33.2 g/dL (33.0-35.0); MEAN CORPUSCULAR VOLUME 81.7 fL (80.0-100.0); MONOCYTES # (AUTO) 0.6 x10^3/uL (0.3-0.8); MONOCYTES % (AUTO) 5.8 % (0.0-13.0); NEUTROPHILS # (AUTO) 7.7 x10^3/uL (2.2-4.8); NEUTROPHILS % (AUTO) 77.4 % (42.0-75.0); RED BLOOD COUNT 3.48 X10^6/uL (3.5-5.4); RED CELL DISTRIBUTION WIDTH 15.8 % (11.6-16.5)
[2021-08-07 06:27] LABS: ALANINE AMINOTRANSFERASE 12 Units/L (12-78); ALBUMIN 1.5 g/dL (3.4-5.0); ALKALINE PHOSPHATASE 85 Units/L (46-116); ASPARTATE AMINO TRANSFERASE 18 Units/L (15-37); BLOOD UREA NITROGEN 12 mg/dL (7-18); CALCIUM 7.2 mg/dL (8.5-10.1); CARBON DIOXIDE 20.6 mmol/L (21-32); CHLORIDE 114 mmol/L (98-107); COR CA(FOR HYPOALB) 9.2 mg/dL (8.5-10.1); COR NA(FOR HYPERGLY) 142 mmol/L (136-145); CREATININE 0.59 mg/dL (0.55-1.02); MAGNESIUM 1.8 mg/dL (1.7-2.9); SODIUM 142 mmol/L (136-145); TOTAL PROTEIN 4.1 g/dL (6.4-8.2); eGFR NON BLACK RACES > 60 (>60)
[2021-08-07 06:41] LABS: BAND NEUTROPHILS % 3 % (0-10); PLATELET MORPHOLOGY COMMENT NORMAL (NORMAL)
[2021-08-07] MEDS: MAGNESIUM SULFATE 1 GRAM/100 mL PREMIX 1 G/100 ML BAG IV PRN ×2 (07:24→09:03)
[2021-08-07] MEDS: VSL#3 PO SCH (08:03)
[2021-08-07] MEDS: LOVENOX INJ 40 MG SYR SC SCH (08:03)
[2021-08-07] MEDS: K-DUR TAB 20 MEQ PO SCH ×2 (08:03→20:17)
[2021-08-07] MEDS: SOLU-Cortef INJ IVP SCH ×4 (09:03→20:17)
--- NOTE | 2021-08-07 11:05 | RAD ---
HISTORYReason For Study pnaSTUDYCHEST, 1 [id number]/2022FINDINGSAccnorthridge hospital [facility] campusi for AP technique and patient rotation, the cardiac silhouette is normal in size. There are patchy opacities within the right lung base. Evaluation of the left lung base is limited due to patient rotation. The left upper lung is clear. There is no significant pleural effusion or pneumothorax.IMPRESSIONPatchy right basilar opacities, suspicious for pneumonia. Clinical correlation and continued PA/lateral radiographic follow-up recommendElectronically signed by: PARISH PEACOCK (August 07, 2021 11:03:13)
[2021-08-07] MEDS: NYSTATIN SUSP MT SCH ×3 (13:51→20:17)
[2021-08-08] MEDS: NS 1,000 ML IV 1,000 ML IV SCH ×3 (01:09→17:11)
[2021-08-08] MEDS: MERREM VIAL 500 MG in NS 100 ML IV 100 ML IV SCH ×3 (05:02→21:01)
[2021-08-08 05:47] LABS: BASOPHILS % (AUTO) 0.2 % (0.2-1.0); EOSINOPHILS % (AUTO) 0.3 % (0.9-2.9); HEMOGLOBIN 9.4 g/dL (12.0-16.0); LYMPHOCYTES # (AUTO) 1.3 X10^3/uL (1.3-2.9); LYMPHOCYTES % (AUTO) 11.3 % (21.0-51.0); MEAN CORPUSCULAR HGB CONC 33.5 g/dL (33.0-35.0); MEAN CORPUSCULAR VOLUME 80.5 fL (80.0-100.0); MONOCYTES # (AUTO) 0.4 x10^3/uL (0.3-0.8); MONOCYTES % (AUTO) 3.4 % (0.0-13.0); NEUTROPHILS # (AUTO) 9.5 x10^3/uL (2.2-4.8); NEUTROPHILS % (AUTO) 84.8 % (42.0-75.0); RED BLOOD COUNT 3.47 X10^6/uL (3.5-5.4); RED CELL DISTRIBUTION WIDTH 15.9 % (11.6-16.5); WHITE BLOOD COUNT 11.2 X10^3/uL (3.6-10.0)
[2021-08-08 05:52] LABS: ALANINE AMINOTRANSFERASE 13 Units/L (12-78); ALBUMIN 1.6 g/dL (3.4-5.0); ALKALINE PHOSPHATASE 86 Units/L (46-116); ASPARTATE AMINO TRANSFERASE 19 Units/L (15-37); BLOOD UREA NITROGEN 10 mg/dL (7-18); CALCIUM 7.1 mg/dL (8.5-10.1); CARBON DIOXIDE 20.5 mmol/L (21-32); CHLORIDE 111 mmol/L (98-107); COR NA(FOR HYPERGLY) 142 mmol/L (136-145); CREATININE 0.54 mg/dL (0.55-1.02); MAGNESIUM 1.8 mg/dL (1.7-2.9); SODIUM 141 mmol/L (136-145); TOTAL PROTEIN 4.2 g/dL (6.4-8.2); eGFR NON BLACK RACES > 60 (>60)
[2021-08-08 06:26] LABS: BAND NEUTROPHILS % 5 % (0-10); PLATELET MORPHOLOGY COMMENT NORMAL (NORMAL)
[2021-08-08] MEDS: MAGNESIUM SULFATE 1 GRAM/100 mL PREMIX 1 G/100 ML BAG IV PRN ×2 (07:20→08:29)
[2021-08-08] MEDS: KLOR-CON PO PRN (07:31)
[2021-08-08] MEDS: K-DUR TAB 20 MEQ PO PRN (07:31)
[2021-08-08] MEDS: LOVENOX INJ 40 MG SYR SC SCH (08:27)
[2021-08-08] MEDS: K-DUR TAB 20 MEQ PO SCH ×2 (08:27→20:18)
[2021-08-08] MEDS: NYSTATIN SUSP MT SCH ×4 (08:27→20:18)
[2021-08-08] MEDS: VSL#3 PO SCH (08:28)
[2021-08-08] MEDS: SOLU-Cortef INJ IVP SCH ×4 (08:28→20:18)
[2021-08-09] MEDS: NS 1,000 ML IV 1,000 ML IV SCH ×2 (02:35→09:20)
[2021-08-09] MEDS: MERREM VIAL 500 MG in NS 100 ML IV 100 ML IV SCH ×2 (05:00→13:14)
[2021-08-09 05:11] LABS: BASOPHILS # (AUTO) 0.1 X10^3/uL (0.0-0.1); BASOPHILS % (AUTO) 0.7 % (0.2-1.0); EOSINOPHILS # (AUTO) 0.3 x10^3/uL (0.0-0.2); HEMATOCRIT 28.5 % (36.0-47.0); HEMOGLOBIN 9.4 g/dL (12.0-16.0); LYMPHOCYTES # (AUTO) 1.2 X10^3/uL (1.3-2.9); LYMPHOCYTES % (AUTO) 10.9 % (21.0-51.0); MEAN CORPUSCULAR HEMOGLOBIN 26.6 pg (27.0-34.0); MEAN CORPUSCULAR HGB CONC 33.1 g/dL (33.0-35.0); MEAN CORPUSCULAR VOLUME 80.4 fL (80.0-100.0); MEAN PLATELET VOLUME 7.6 fL (7.4-11.0); MONOCYTES # (AUTO) 0.4 x10^3/uL (0.3-0.8); MONOCYTES % (AUTO) 3.4 % (0.0-13.0); NEUTROPHILS # (AUTO) 9.3 x10^3/uL (2.2-4.8); RED BLOOD COUNT 3.54 X10^6/uL (3.5-5.4); WHITE BLOOD COUNT 11.3 X10^3/uL (3.6-10.0)
[2021-08-09 05:23] LABS: ALANINE AMINOTRANSFERASE 10 Units/L (12-78); ALBUMIN 1.5 g/dL (3.4-5.0); ALKALINE PHOSPHATASE 82 Units/L (46-116); ASPARTATE AMINO TRANSFERASE 16 Units/L (15-37); BLOOD UREA NITROGEN 7 mg/dL (7-18); CARBON DIOXIDE 25.9 mmol/L (21-32); CHLORIDE 112 mmol/L (98-107); COR NA(FOR HYPERGLY) 142 mmol/L (136-145); CREATININE 0.51 mg/dL (0.55-1.02); SODIUM 142 mmol/L (136-145); TOTAL PROTEIN 4.1 g/dL (6.4-8.2); eGFR NON BLACK RACES > 60 (>60)
[2021-08-09 05:44] LABS: BAND NEUTROPHILS % 7 % (0-10)
[2021-08-09 05:45] LABS: PLATELET MORPHOLOGY COMMENT NORMAL (NORMAL)
[2021-08-09] MEDS: K-RIDER 10 MEQ/NS 100 ML 10 MEQ/100 ML BAG IV PRN ×2 (06:10→07:18)
[2021-08-09] MEDS: MAGNESIUM SULFATE 1 GRAM/100 mL PREMIX 1 G/100 ML BAG IV PRN ×2 (06:55→08:46)
[2021-08-09] MEDS: K-DUR TAB 20 MEQ PO SCH (08:07)
[2021-08-09] MEDS: VSL#3 PO SCH (08:07)
[2021-08-09] MEDS: NYSTATIN SUSP MT SCH ×2 (08:07→12:26)
[2021-08-09] MEDS: SOLU-Cortef INJ IVP SCH ×2 (08:07→12:26)
[2021-08-09] MEDS: LOVENOX INJ 40 MG SYR SC SCH (08:07)
[2021-08-09 14:13] VITALS: BP 106/53
== END 2021-08-09 14:30 | DRG 871 ==
LOC: ER 08:49 → ICU 12:02
PROVIDERS: ADMIT Obstetrics & Gynecology Obstetrics; ATTEND Obstetrics & Gynecology Obstetrics

== ENCOUNTER 2021-09-28 14:59 | Observation (INO) ==
--- NOTE | 2021-09-28 15:42 | DR.NAUSEAF ---
HPI Time Seen Time Seen by Provider: 09/28/21 15:41 Primary Care Physician Primary Care Physician: GONZALES Complaints Chief Complaint Doctors Comments: 80 y/o female brought over from the [place], reportedly having nausea/vomiting past 2 days. Has a low BP today. Pt awake, alert, but a poor historian. States she doesn't know why she is here. Admits to some nausea, vomiting. Denies abdominal pain. States she is hungry. Unable to provide accurate answers, appears to have underlying dementia. No report of fever, chills, cough, urinary difficulty, diarrhea. Chief Complaint:: TONH STAFF STATES PATIENT IS NOTED TO BE HAVNIG HYPOTENSION WITH N/V. PATIENT WAS NOTED TO HAVE A ABD SERIES DONE OUTPATIENT YESTERDAY WITH REPORTS IN CHART COVID-19 Coronavirus risk:travel/contact w/high risk person: No Has patient experienced Coronavirus symptoms: No Reviewed Nurses Notes Reviewed: Yes Source History Provided: Residential Mode of Arrival Mode of Arrival: Stretcher Timing Onset of Chief Complaint: 09/26/21 PMH PMH Past Medical History: Yes Past Medical History: Anemia, Coronary Artery Disease, Dyslipidemia and GERD Past Surgical History: Yes Surgical History: Ortho Surgery, Tonsillectomy and Other Family History History of Family Medical Conditions: Yes Family Medical History: Diabetes Mellitus, Cancer, Coronary Artery Disease and Hypertension Social History Does any household member use tobacco: No Alcohol Use: None Do you use any recreational Drugs:: No Lives With: Family Lives Where: Home Travel Risk Coronavirus risk:travel/contact w/high risk person: No Has patient experienced Coronavirus symptoms: No Infectious screening In the last 2 months have you had wt loss of >10#?: NO Have you had fever, night sweats or hemotysis?: No Have you traveled outside the country in the last 6 months?: No Isolation: Standard ROS Review of Systems Constitutional: No Symptoms Reported ENTM: No Symptoms Reported Respiratoy: No Symptoms Reported Cardiovascular: No Symptoms Reported Gastrointestinal/Abdominal: Nausea and Vomiting Genitourinary: No Symptoms Reported Neurological: No Symptoms Reported Musculoskeletal: No Symptoms Reported Integumentary: No Symptoms Reported Hematologic/Lymphatic: No Symptoms Reported All Other Systems: Reviewed and Negative PE Vital Signs Vitals: Temperature 97.7 F Pulse Rate [Right Radial] 74 Pulse Rate 74 Respiratory Rate 20 Blood Pressure [Right Arm] 101/55 Blood Pressure [Left Arm] 118/61 Blood Pressure 102/55 O2 Sat by Pulse Oximetry 98 General General Appearance: Alert and In No Apparent Distress Head Head Exam: Normal Inspection, Atraumatic and Normocephalic Eyes Eye exam: PERRL and EOMI ENT ENT Exam: Mucous Membranes Moist Neck Neck Exam: Normal Inspection and Full ROM; negative Tenderness Respiratory Respiratory Exam: Normal Lung Sounds Bilat; negative Accessory Muscle Use or Respiratory Distress Abdominal Exam Abdominal Exam: Normal Inspection, Normal Bowel Sounds and Soft; negative Tenderness, Guarding or Rebound Extremities Extremities Exam: Other (+ lower ext contractures); negative Tenderness Neurologic Neurological Exam: Alert and CN II-XII Intact; negative Motor Sensory Deficit Skin Skin Exam: Warm and Dry COURSE Treatment Treatment: 80 y/o female with vomiting x 2 days, now low BP. Does not appear to be in distress. Reportedly had abdominal x-rays today concerning for ileus vs SBO. Given IV fluids, IV zofran. 1854 - CBC, CMP OK. U/A (cath specimen) with TNTC WBCs, very cloudy. Ileus probably related to UTI. Recommend admission. Will treat with IV rocephin. Discussed with Dr Rodríguez, covering for Dr Gonzales, accepts the admission. [facility]OR Labs Reviewed Laboratory Results Reviewed?: Yes Result Diagrams: 09/28/21 16:20 09/28/21 16:20 Laboratory: WBC 7.9 X10^3/uL (3.6-10.0) 09/28/21 16:20 RBC 4.28 X10^6/uL (3.5-5.4) 09/28/21 16:20 Hgb 11.4 g/dL (12.0-16.0) L 09/28/21 16:20 Hct 35.6 % (36.0-47.0) L 09/28/21 16:20 MCV 83.2 fL (80.0-100.0) 09/28/21 16:20 MCH 26.6 pg (27.0-34.0) L 09/28/21 16:20 MCHC 31.9 g/dL (33.0-35.0) L 09/28/21 16:20 RDW 17.0 % (11.6-16.5) H 09/28/21 16:20 Plt Count 321 X10^3/uL (150.0-450.0) 09/28/21 16:20 MPV 7.6 fL (7.4-11.0) 09/28/21 16:20 Neut % (Auto) 53.7 % (42.0-75.0) 09/28/21 16:20 Lymph % (Auto) 33.1 % (21.0-51.0) 09/28/21 16:20 [place] % (Auto) 9.1 % (0.0-13.0) 09/28/21 16:20 Eos % (Auto) 1.8 % (0.9-2.9) 09/28/21 16:20 Baso % (Auto) 2.3 % (0.2-1.0) H 09/28/21 16:20 Neut # (Auto) 4.3 x10^3/uL (2.2-4.8) 09/28/21 16:20 Lymph # (Auto) 2.6 X10^3/uL (1.3-2.9) 09/28/21 16:20 [place] # (Auto) 0.7 x10^3/uL (0.3-0.8) 09/28/21 16:20 Eos # (Auto) 0.1 x10^3/uL (0.0-0.2) 09/28/21 16:20 Baso # (Auto) 0.2 X10^3/uL (0.0-0.1) H 09/28/21 16:20 Absolute Nucleated RBC 0.2 /100WBC 09/28/21 16:20 Sodium 142 mmol/L (136-145) 09/28/21 16:20 Corrected Sodium TNP 09/28/21 16:20 Potassium 4.4 mmol/L (3.5-5.1) 09/28/21 16:20 Chloride 108 mmol/L (98-107) H 09/28/21 16:20 Carbon Dioxide 29.5 mmol/L (21-32) 09/28/21 16:20 BUN 16 mg/dL (7-18) 09/28/21 16:20 Creatinine 0.68 mg/dL (0.55-1.02) 09/28/21 16:20 Est GFR (MDRD) Af Amer > 60 (>60) 09/28/21 16:20 Est GFR (MDRD) Non-Af > 60 (>60) 09/28/21 16:20 Glucose 97 mg/dL (65-99) 09/28/21 16:20 Lactic Acid 1.1 mmol/L (0.4-2.0) 09/28/21 16:20 Calcium 8.8 mg/dL (8.5-10.1) 09/28/21 16:20 Corrected Calcium 10.1 mg/dL (8.5-10.1) 09/28/21 16:20 Total Bilirubin 0.20 mg/dL (0.2-1.0) 09/28/21 16:20 AST 20 Units/L (15-37) 09/28/21 16:20 ALT 17 Units/L (12-78) 09/28/21 16:20 Alkaline Phosphatase 103 Units/L (46-116) 09/28/21 16:20 Creatine Kinase 18 Units/L (26-192) L 09/28/21 16:20 CK-MB (CK-2) < 1.0 ng/mL (0-4.0) 09/28/21 16:20 CK/CKMB % Calc 5.6 % (<4) 09/28/21 16:20 Troponin I High Sens 4.6 ng/L (4.0-60.0) 09/28/21 16:20 Total Protein 5.9 g/dL (6.4-8.2) L 09/28/21 16:20 Albumin 2.4 g/dL (3.4-5.0) L 09/28/21 16:20 Globulin 3.5 g/dL (2.5-4.5) 09/28/21 16:20 Albumin/Globulin Ratio 0.7 Ratio (1.1-2.1) L 09/28/21 16:20 Lipase 29 Units/L (73-393) L 09/28/21 16:20 Specimen Type Catherized urine 09/28/21 17:57 Urine Color Yellow (YELLOW) 09/28/21 17:57 Urine Appearance Cloudy (CLEAR) 09/28/21 17:57 Urine pH 7.0 (5.0 - 8.0) 09/28/21 17:57 Ur Specific [place] 1.015 (1.000-1.030) 09/28/21 17:57 Urine Protein 3+ (NEGATIVE) 09/28/21 17:57 Urine Glucose (UA) Negative (NEGATIVE) 09/28/21 17:57 Urine Ketones 1+ (NEGATIVE) 09/28/21 17:57 Urine Blood 4+ (NEGATIVE) 09/28/21 17:57 Urine Nitrite Positive (NEGATIVE) 09/28/21 17:57 Urine Bilirubin Negative (NEGATIVE) 09/28/21 17:57 Urine Urobilinogen Normal (NORMAL) 09/28/21 17:57 Ur Leukocyte Esterase 3+ (NEGATIVE) 09/28/21 17:57 Urine RBC 3-5 /HPF (0-3) A 09/28/21 17:57 Urine WBC Tntc /HPF (0-5) A 09/28/21 17:57 Ur Squamous Epith Cells Few /HPF (NEGATIVE) 09/28/21 17:57 Urine Bacteria 3+ /HPF (NEGATIVE) 09/28/21 17:57 Urine Mucus Moderate /HPF (NEGATIVE) 09/28/21 17:57 Ur Culture Indicated? Yes/culture set up 09/28/21 17:57 CBC, CMP acceptable. U/A (cath specimen) with TNTC WBCs, 3+ bacteria. XRAY XRAY Interpreted by: Self X-ray Results: CXR - no acute abnormalities. CT abd/pelvis - c/w ileus, doubt SBO. Opioid Opioid Risk Tool Age (Erasto box if 16-45): No History of Preadolescent Sexual Abuse: No Total: 0 Total Score Risk Category: Low Risk Copyright: [facility] predicting aberrant behaviors Discharge Plan Diagnosis Discharge Problem: Acute UTI, Ileus Discharge Plan Patient Disposition: 01 HOME, SELF-CARE Condition: Stable Prescriptions: No Action budesonide 32 mcg/actuation spray,non-aerosol 1 spray INTRANASAL DAILY hydrocodone-acetaminophen 5-325 mg tablet 1 tab PO Q6H ondansetron HCl 4 mg tablet 4 mg PO Q4H omeprazole 20 mg capsule,delayed release(DR/EC) 20 mg PO BID escitalopram oxalate [Lexapro] 10 mg tablet 10 mg PO DAILY acetaminophen [Tylenol] 325 mg Tablet 650 mg PO Q4H PRN ketotifen fumarate 0.025 % (0.035 %) Drops 1 drp OPHTHALMIC (EYE) BID ascorbic acid (vitamin C) [Vitamin C] 500 mg Tablet 500 mg PO DAILY zinc 50 mg Tablet 50 mg PO DAILY Glucerna Liquid 1 ea PO BID Rupert 7-7-1.5 gram Powder In Packet 1 ea PO DAILY potassium chloride [Klor-Con M20] 20 mEq Tablet,Er Particles/Crystals 20 meq PO DAILY Qty: 30 12RF hydrocortisone [Cortef] 10 mg Tablet 10 mg PO BID Qty: 21 0RF Rx Instructions: Take 1 tab in the morning and 1 tab at lunch x7days then take 1 tab in the morning x7 days ketotifen fumarate [Zaditor] 0.025 % (0.035 %) Drops 1 drp OPHTHALMIC (EYE) BID Rx Instructions: administer at least 8 hours apart Health Concerns: Post Hospitalization: new medications and changes needed to prevent readmission or further decline. Pt educated and given instructions on all concerns. Plan of Treatment: Continue with present treatment and follow up plan. Pt is to keep follow up appointment as instructed and take medications as ordered. Orders to Discharge Patient Discharge Orders: Discharge (Routine); Ordered 09/28/21 Ordered By: Ry Sam Transfer (Routine); Ordered 09/28/21 Ordered By: Ry Sam Follow ups/Referrals Follow ups/Referrals: DELIA GONZALES [Primary Care Provider] - 3 days Instructions Stand Alone Forms: Precautions for COVID, [facility], Patient Portal, Social Distancing
[2021-09-28] MEDS ORDERED: ZOFRAN INJ 4 MG VIAL IVP ONE (15:45)
[2021-09-28] MEDS ORDERED: NS 500 ML IV 500 ML IV ONE ×2 (15:46→15:54)
[2021-09-28] MEDS ORDERED: ZOFRAN INJ 4 MG VIAL ONE (15:54)
[2021-09-28 16:38] LABS: BASOPHILS # (AUTO) 0.2 X10^3/uL (0.0-0.1); BASOPHILS % (AUTO) 2.3 % (0.2-1.0); EOSINOPHILS # (AUTO) 0.1 x10^3/uL (0.0-0.2); EOSINOPHILS % (AUTO) 1.8 % (0.9-2.9); HEMATOCRIT 35.6 % (36.0-47.0); HEMOGLOBIN 11.4 g/dL (12.0-16.0); LYMPHOCYTES # (AUTO) 2.6 X10^3/uL (1.3-2.9); LYMPHOCYTES % (AUTO) 33.1 % (21.0-51.0); MEAN CORPUSCULAR HEMOGLOBIN 26.6 pg (27.0-34.0); MEAN CORPUSCULAR HGB CONC 31.9 g/dL (33.0-35.0); MEAN CORPUSCULAR VOLUME 83.2 fL (80.0-100.0); MEAN PLATELET VOLUME 7.6 fL (7.4-11.0); MONOCYTES # (AUTO) 0.7 x10^3/uL (0.3-0.8); MONOCYTES % (AUTO) 9.1 % (0.0-13.0); NEUTROPHILS # (AUTO) 4.3 x10^3/uL (2.2-4.8); NEUTROPHILS % (AUTO) 53.7 % (42.0-75.0); RED BLOOD COUNT 4.28 X10^6/uL (3.5-5.4); WHITE BLOOD COUNT 7.9 X10^3/uL (3.6-10.0)
[2021-09-28 16:57] LABS: LACTIC ACID 1.1 mmol/L (0.4-2.0)
[2021-09-28 17:01] LABS: ALANINE AMINOTRANSFERASE 17 Units/L (12-78); ALBUMIN 2.4 g/dL (3.4-5.0); ALKALINE PHOSPHATASE 103 Units/L (46-116); ASPARTATE AMINO TRANSFERASE 20 Units/L (15-37); BLOOD UREA NITROGEN 16 mg/dL (7-18); CALCIUM 8.8 mg/dL (8.5-10.1); CARBON DIOXIDE 29.5 mmol/L (21-32); CHLORIDE 108 mmol/L (98-107); CKMB % 5.6 % (<4); COR CA(FOR HYPOALB) 10.1 mg/dL (8.5-10.1); CREATINE KINASE 18 Units/L (26-192); CREATINE KINASE MB < 1.0 ng/mL (0-4.0); CREATININE 0.68 mg/dL (0.55-1.02); LIPASE 29 Units/L (73-393); SODIUM 142 mmol/L (136-145); TOTAL PROTEIN 5.9 g/dL (6.4-8.2); eGFR NON BLACK RACES > 60 (>60)
[2021-09-28] MEDS ORDERED: NS 100 ML IV 100 ML ONE ×2 (18:03→20:19)
[2021-09-28 18:10] LABS: BILIRUBIN,URINE NEGATIVE (NEGATIVE); BLOOD/HEMOGLOBIN,URINE 4+ (NEGATIVE); GLUCOSE, URINE NEGATIVE (NEGATIVE); KETONES,URINE 1+ (NEGATIVE); LEUKOCYTE ESTERASE ,URINE 3+ (NEGATIVE); NITRITES,URINE POSITIVE (NEGATIVE); PROTEIN,URINE 3+ (NEGATIVE); UROBILINOGEN,URINE NORMAL (NORMAL)
[2021-09-28 18:19] LABS: APPEARANCE,URINE CLOUDY (CLEAR); COLOR,URINE YELLOW (YELLOW)
[2021-09-28 18:20] LABS: BACTERIA,URINE 3+ /HPF (NEGATIVE); SQUAMOUS EPITHELIAL CELL,UR FEW /HPF (NEGATIVE)
--- NOTE | 2021-09-28 19:15 | CT ---
EXAM: CT ABDOMEN AND PELVIS WITH INTRAVENOUS CONTRASTHISTORY: Hypertension. Nausea and vomiting.TECHNIQUE: Spiral axial CT images are obtained through the abdomen and pelvis without the administration of oral contrast and with the administration of intravenous contrast. Additional coronal and sagittal reformatted images are reconstructed.DOSIMETRY: Total DLP 412.2 mGycm; CTDI 39.9 mGyCOMPARISON: None available.FINDINGS:GASTROINTESTINAL TRACT: There is nonspecific, fluid-filled, nondilated small and large bowel loops within the abdomen and pelvis; cannot rule out enteritis with impending diarrhea. Clinical correlation is advised. No evidence for bowel herniation, bowel obstruction, appendicitis, colitis, or diverticulitis.GENITOURINARY SYSTEM: There is a large, approximately 3.4 cm CC by 1.8 cm AP by 3.1 cm transverse, staghorn calculus in the right renal pelvis and contiguous inferior calyces, follow-up with moderate right hydronephrosis; no urine extravasation seen. Approximately 2.4 cm transverse by 1.3 cm AP by 2.3 cm CC staghorn calculus and left renal pelvis with mild hydronephrosis; no urine extravasation seen. Additional tiny bilateral nonobstructing renal calculi are noted. Mildly thickened appearance of the urinary bladder wall which may represent sequela of incomplete bladder distention and/or cystitis in the appropriate clinical setting. Clinical correlation is advised.REPRODUCTIVE SYSTEM: Small air collections are seen within the endometrial cavity and endocervical canal; nonspecific finding; DDx includes sequela of endometrial infectious process. The adnexa appear grossly unremarkable for a CT scan. Consider follow-up dedicated imaging as clinically warranted.CT ABDOMEN: Dilated gallbladder; nonspecific finding which may represent sequela of NPO status; consider follow-up evaluation with ultrasound and/or HIDA scan to rule out acute gallbladder disease if clinically warranted. Severe aortoiliac atherosclerotic disease, without aneurysm formation or dissection. Small calcified granulomas are seen in the spleen, in keeping with chronic sequela of prior granulomatous disease. The liver, pancreas, adrenal glands and inferior vena cava are within normal limits for a CT scan. There is no intra-abdominal or retroperitoneal lymphadenopathy, free fluid, or free air seen. No abdominal herniation is noted.CT PELVIS: No pelvic sidewall or inguinal lymphadenopathy is seen. No inguinal herniation is noted. No free fluid or free air is seen. A left common iliac venous Wallstent is noted in situ, with evidence for partial intimal thickening or intraluminal thrombus.BONES AND JOINTS: Status post right hip hemiarthroplasty. There is a chronic moderate to severe anterior wedge compression fracture of the superior endplate of the L1 vertebral body. Severe multilevel DDD is seen throughout the distal thoracic and distal lumbar spine. The visualized bony structures are otherwise within normal limits.LUNG BASES: The lung bases are clear. There is cardiomegaly with four-chamber enlargement.IMPRESSION:1. Large, approximately 3.4 cm CC by 1.8 cm AP by 3.1 cm transverse, staghorn calculus in the right renal pelvis and contiguous inferior calyces, follow-up with moderate right hydronephrosis; no urine extravasation seen; cannot rule out urosepsis in the appropriate clinical setting.2. Approximately 2.4 cm transverse by 1.3 cm AP by 2.3 cm CC staghorn calculus and left renal pelvis with mild hydronephrosis; no urine extravasation seen; cannot rule out urosepsis in the appropriate clinical setting.3. Additional tiny bilateral nonobstructing renal calculi are noted.4. Mildly thickened appearance of the urinary bladder wall which may represent sequela of incomplete bladder distention and/or cystitis in the appropriate clinical setting. Clinical correlation is advised.5. Nonspecific, fluid-filled, nondilated small and large bowel loops within the abdomen and pelvis; cannot rule out enteritis with impending diarrhea. Clinical correlation is advised.6. No evidence for acute appendicitis, bowel herniation/obstruction, colitis or diverticulitis seen.7. Dilated gallbladder; nonspecific finding which may represent sequela of NPO status; consider follow-up evaluation with ultrasound and/or HIDA scan to rule out acute gallbladder disease if clinically warranted.8. Small air collections are seen within the endometrial cavity and endocervical canal; nonspecific finding; DDx includes sequela of endometrial infectious process.9. No free fluid, free air, mass lesions, or lymphadenopathy seen.Electronically signed by: Thor Espinoza (Sep 28, 2021 19:12:52)
[2021-09-28] MEDS ORDERED: ZOFRAN INJ 4 MG VIAL IVP PRN (20:15)
[2021-09-28] MEDS ORDERED: ROCEPHIN VIAL 1 GRAM 1 G in NS 100 ML IV 100 ML IV SCH (20:15)
[2021-09-28] MEDS ORDERED: D5 NS 1,000 ML IV 1,000 ML IV SCH (20:15)
[2021-09-28] MEDS ORDERED: ROCEPHIN VIAL 1 GRAM ONE (20:19)
[2021-09-28] MEDS ORDERED: D5 NS 1,000 ML IV 1,000 ML IV ONE (20:19)
[2021-09-28] MEDS ORDERED: CORTEF PO SCH (21:00)
--- NOTE | 2021-09-28 22:26 | RAD ---
EXAM: CHEST X-RAYHISTORY: Vomiting.TECHNIQUE: AP CXR dated September 28, 2021 at 4:20 PM.COMPARISON: None available.FINDINGS:The heart size and mediastinum are within normal limits. The lung daily and costophrenic angles are clear. There is no acute parenchymal infiltrate, pleural effusion, or pneumothorax seen. The visualized bony structures are within normal limits.IMPRESSION:1. No evidence for acute cardiopulmonary disease seen.Electronically signed by: Thor Espinoza (Sep 28, 2021 22:25:57)
[2021-09-29] MEDS ORDERED: CORTEF ONE ×2 (05:30→13:55)
[2021-09-29 05:40] LABS: BASOPHILS % (AUTO) 0.4 % (0.2-1.0); EOSINOPHILS # (AUTO) 0.2 x10^3/uL (0.0-0.2); EOSINOPHILS % (AUTO) 2.2 % (0.9-2.9); HEMATOCRIT 30.2 % (36.0-47.0); LYMPHOCYTES # (AUTO) 2.3 X10^3/uL (1.3-2.9); LYMPHOCYTES % (AUTO) 29.4 % (21.0-51.0); MEAN CORPUSCULAR HEMOGLOBIN 27.1 pg (27.0-34.0); MEAN CORPUSCULAR HGB CONC 33.2 g/dL (33.0-35.0); MEAN CORPUSCULAR VOLUME 81.7 fL (80.0-100.0); MEAN PLATELET VOLUME 7.7 fL (7.4-11.0); MONOCYTES # (AUTO) 0.6 x10^3/uL (0.3-0.8); MONOCYTES % (AUTO) 7.9 % (0.0-13.0); NEUTROPHILS # (AUTO) 4.6 x10^3/uL (2.2-4.8); NEUTROPHILS % (AUTO) 60.1 % (42.0-75.0); RED CELL DISTRIBUTION WIDTH 16.6 % (11.6-16.5); WHITE BLOOD COUNT 7.7 X10^3/uL (3.6-10.0)
[2021-09-29 05:55] LABS: CHLORIDE 106 mmol/L (98-107); TOTAL PROTEIN 5.3 g/dL (6.4-8.2); eGFR NON BLACK RACES > 60 (>60)
[2021-09-29] MEDS: CORTEF PO SCH ×2 (06:13→13:59)
[2021-09-29 06:34] LABS: ALANINE AMINOTRANSFERASE 19 Units/L (12-78); ALBUMIN 2.2 g/dL (3.4-5.0); ALKALINE PHOSPHATASE 94 Units/L (46-116); ASPARTATE AMINO TRANSFERASE 21 Units/L (15-37); BLOOD UREA NITROGEN 12 mg/dL (7-18); CALCIUM 8.1 mg/dL (8.5-10.1); CARBON DIOXIDE 24.5 mmol/L (21-32); COR CA(FOR HYPOALB) 9.5 mg/dL (8.5-10.1); COR NA(FOR HYPERGLY) 137 mmol/L (136-145); CREATININE 0.58 mg/dL (0.55-1.02); SODIUM 137 mmol/L (136-145)
[2021-09-29] MEDS ORDERED: LEXAPRO ONE (08:53)
[2021-09-29] MEDS: LEXAPRO PO SCH (09:31)
[2021-09-29] MEDS: LR 1,000 ML IV 1,000 ML IV SCH ×2 (09:36→19:14)
--- NOTE | 2021-09-29 10:38 | RAD ---
HISTORYLOOSE STOOLS, ACUTE UTI, ILEUS Relevant Clinical InformationSTUDYACUTE ABDOMEN SERIESCOMPARISONFINDINGSThe trachea is midline. The cardiac silhouette is [unremarkable]. [The lungs are clear without focal mass or consolidation. There are mild chronic interstitial lung changes. There is no effusion or pneumothorax.] [The bony thorax is unremarkable].Flat plate and upright evaluation of the abdomen demonstrates a [normal bowel gas pattern]. There is no pneumoperitoneum. No pathological soft tissue mass can be observed over opacities centrally in the left kidney and larger 1 centrally in the right kidney are highly suspicious for staghorn calculi right larger than left. The bony structures are grossly intact. Degenerative disc disease is seen at L3-4 a right hip prosthesis is in place and is a vascular stent in a left iliac vessel.IMPRESSION1. [No acute cardiopulmonary disease.] Mild chronic lung changes but nothing acute.2. [No evidence for acute abdominal pathology identified.] Significantly sized bilateral renal staghorn calculi are observed, right larger than leftElectronically signed by: DOT LANDA (Sep 29, 2021 10:37:41)
[2021-09-29] MEDS: LOVENOX INJ 40 MG SYR SC SCH (14:00)
[2021-09-29] MEDS ORDERED: POTASSIUM CHL 40 MEQ/NS 0.45% 500 ML IV PRN (19:24)
[2021-09-29] MEDS ORDERED: MICRO K EXTEN CAP 10 MEQ PO PRN (19:24)
[2021-09-29] MEDS ORDERED: K-DUR TAB 20 MEQ PO PRN (19:24)
[2021-09-29] MEDS ORDERED: POTASSIUM CHL 60 MEQ/NS 0.45% 500 ML IV PRN (19:24)
[2021-09-29] MEDS ORDERED: POTASSIUM CHLORIDE LIQ 20 MEQ UDC PO PRN (19:24)
[2021-09-29] MEDS: KLOR-CON PO PRN (19:41)
[2021-09-29] MEDS: MAGNESIUM SULFATE 1 GRAM/100 mL PREMIX 1 G/100 ML BAG IV PRN ×2 (19:42→22:30)
[2021-09-29] MEDS ORDERED: ROCEPHIN VIAL 1 GRAM 1 G in NS 100 ML IV 100 ML IV SCH (21:00)
[2021-09-30] MEDS: K-RIDER 10 MEQ/NS 100 ML 10 MEQ/100 ML BAG IV PRN ×3 (00:45→06:09)
[2021-09-30] MEDS: LR 1,000 ML IV 1,000 ML IV SCH ×3 (01:37→17:10)
[2021-09-30] MEDS ORDERED: CORTEF ONE ×2 (05:21→12:22)
[2021-09-30 05:41] LABS: BASOPHILS % (AUTO) 0.2 % (0.2-1.0); EOSINOPHILS # (AUTO) 0.2 x10^3/uL (0.0-0.2); EOSINOPHILS % (AUTO) 3.3 % (0.9-2.9); HEMATOCRIT 28.2 % (36.0-47.0); HEMOGLOBIN 9.4 g/dL (12.0-16.0); LYMPHOCYTES # (AUTO) 2.2 X10^3/uL (1.3-2.9); LYMPHOCYTES % (AUTO) 36.4 % (21.0-51.0); MEAN CORPUSCULAR HEMOGLOBIN 27.1 pg (27.0-34.0); MEAN CORPUSCULAR HGB CONC 33.2 g/dL (33.0-35.0); MEAN CORPUSCULAR VOLUME 81.5 fL (80.0-100.0); MEAN PLATELET VOLUME 7.6 fL (7.4-11.0); MONOCYTES # (AUTO) 0.5 x10^3/uL (0.3-0.8); MONOCYTES % (AUTO) 8.5 % (0.0-13.0); NEUTROPHILS # (AUTO) 3.2 x10^3/uL (2.2-4.8); NEUTROPHILS % (AUTO) 51.6 % (42.0-75.0); RED BLOOD COUNT 3.46 X10^6/uL (3.5-5.4); RED CELL DISTRIBUTION WIDTH 16.5 % (11.6-16.5); WHITE BLOOD COUNT 6.2 X10^3/uL (3.6-10.0)
[2021-09-30 05:47] LABS: ALANINE AMINOTRANSFERASE 18 Units/L (12-78); ALBUMIN 1.9 g/dL (3.4-5.0); ALKALINE PHOSPHATASE 85 Units/L (46-116); ASPARTATE AMINO TRANSFERASE 21 Units/L (15-37); BLOOD UREA NITROGEN 5 mg/dL (7-18); CALCIUM 7.9 mg/dL (8.5-10.1); CARBON DIOXIDE 21.3 mmol/L (21-32); CHLORIDE 110 mmol/L (98-107); COR CA(FOR HYPOALB) 9.6 mg/dL (8.5-10.1); CREATININE 0.48 mg/dL (0.55-1.02); SODIUM 138 mmol/L (136-145); TOTAL PROTEIN 4.9 g/dL (6.4-8.2); eGFR NON BLACK RACES > 60 (>60)
[2021-09-30] MEDS: CORTEF PO SCH ×2 (05:58→12:26)
[2021-09-30] MEDS ORDERED: LEXAPRO ONE (08:20)
[2021-09-30] MEDS: LOVENOX INJ 40 MG SYR SC SCH (08:46)
[2021-09-30] MEDS: LEXAPRO PO SCH (08:47)
[2021-09-30] MEDS ORDERED: MERREM VIAL IVP SCH (10:00)
[2021-09-30] MEDS: MERREM VIAL 1 G in NS 100 ML IV 100 ML IV SCH ×3 (11:15→21:00)
[2021-09-30 17:19] VITALS: BMI 26.2
[2021-10-01] MEDS: LR 1,000 ML IV 1,000 ML IV SCH ×2 (02:10→11:29)
[2021-10-01] MEDS ORDERED: CORTEF ONE ×2 (04:44→11:33)
[2021-10-01] MEDS: CORTEF PO SCH ×2 (05:11→11:36)
[2021-10-01] MEDS: MERREM VIAL 1 G in NS 100 ML IV 100 ML IV SCH ×2 (05:12→13:07)
[2021-10-01 05:54] LABS: BASOPHILS % (AUTO) 0.3 % (0.2-1.0); EOSINOPHILS # (AUTO) 0.3 x10^3/uL (0.0-0.2); EOSINOPHILS % (AUTO) 4.4 % (0.9-2.9); HEMATOCRIT 29.1 % (36.0-47.0); HEMOGLOBIN 9.6 g/dL (12.0-16.0); LYMPHOCYTES # (AUTO) 2.5 X10^3/uL (1.3-2.9); LYMPHOCYTES % (AUTO) 39.6 % (21.0-51.0); MEAN CORPUSCULAR HEMOGLOBIN 27.1 pg (27.0-34.0); MEAN CORPUSCULAR HGB CONC 33.2 g/dL (33.0-35.0); MEAN CORPUSCULAR VOLUME 81.8 fL (80.0-100.0); MEAN PLATELET VOLUME 7.4 fL (7.4-11.0); MONOCYTES # (AUTO) 0.6 x10^3/uL (0.3-0.8); MONOCYTES % (AUTO) 8.8 % (0.0-13.0); NEUTROPHILS % (AUTO) 46.9 % (42.0-75.0); RED BLOOD COUNT 3.56 X10^6/uL (3.5-5.4); RED CELL DISTRIBUTION WIDTH 16.6 % (11.6-16.5); WHITE BLOOD COUNT 6.3 X10^3/uL (3.6-10.0)
[2021-10-01 06:08] LABS: ALANINE AMINOTRANSFERASE 17 Units/L (12-78); ALBUMIN 1.9 g/dL (3.4-5.0); ALKALINE PHOSPHATASE 91 Units/L (46-116); ASPARTATE AMINO TRANSFERASE 17 Units/L (15-37); BLOOD UREA NITROGEN 3 mg/dL (7-18); CALCIUM 8.1 mg/dL (8.5-10.1); CARBON DIOXIDE 24.2 mmol/L (21-32); CHLORIDE 111 mmol/L (98-107); COR CA(FOR HYPOALB) 9.8 mg/dL (8.5-10.1); CREATININE 0.44 mg/dL (0.55-1.02); SODIUM 141 mmol/L (136-145); TOTAL PROTEIN 4.9 g/dL (6.4-8.2); eGFR NON BLACK RACES > 60 (>60)
[2021-10-01] MEDS ORDERED: LEXAPRO ONE (08:08)
[2021-10-01] MEDS: MAGNESIUM SULFATE 1 GRAM/100 mL PREMIX 1 G/100 ML BAG IV PRN ×2 (08:32→09:41)
[2021-10-01] MEDS: KLOR-CON PO PRN (08:32)
[2021-10-01] MEDS: LOVENOX INJ 40 MG SYR SC SCH (08:33)
[2021-10-01] MEDS: LEXAPRO PO SCH (08:33)
[2021-10-01 12:36] VITALS: BP 111/58
[2021-10-06] MEDS ORDERED: CORTEF PO SCH (09:00)
== END 2021-10-01 15:35 ==
LOC: MED/SURG 14:59 → ER 14:59 → MED/SURG 21:28
PROVIDERS: ADMIT Internal Medicine; ATTEND Obstetrics & Gynecology Obstetrics
DX: K21.9 Gastro-esophageal reflux disease without esophagitis; B96.4 Proteus (mirabilis) (morganii) as the cause of diseases classified elsewhere; L89.153 Pressure ulcer of sacral region, stage 3; B96.29 Other Escherichia coli [E. coli] as the cause of diseases classified elsewhere; E78.2 Mixed hyperlipidemia; Z20.822 Contact with and (suspected) exposure to COVID-19; N39.0 Urinary tract infection, site not specified; K56.7 Ileus, unspecified; I25.10 Atherosclerotic heart disease of native coronary artery without angina pectoris; B95.62 Methicillin resistant Staphylococcus aureus infection as the cause of diseases classified elsewhere; N13.6 Pyonephrosis; R11.2 Nausea with vomiting, unspecified; I95.89 Other hypotension; R19.7 Diarrhea, unspecified